=== PATIENT | male | born 1980 | race American Indian/Alaskan Native ===

== ENCOUNTER 2016-06-17 15:59 | Emergency (ER) | payer SELFPAY ==
[2016-06-17 18:25] VITALS: BP 136/84
--- NOTE | 2016-06-17 19:09 | Emergency Department Report ---
Chief Complaint: Chest Pain Stated Complaint: CHEST PAIN Time Seen by Provider: 06/17/16 19:09 - HPI History of Present Illness: This is a 36-year-old patient complaining the pain in middle chest since this afternoon. She said the pain is constant in its pressure in the mid chest area. He is complaining of sharp pain with deep breaths or bending over. Reports nausea and vomited once today. Complaining of feeling short of breath today. Denies any cough. Denies any fever or chills. Chest pain is 8 out of 10. Denies injury to chest. Denies any medical problem. - ROS Review of Systems: All systems are negative unless stated in HPI above - Exam Vital Signs: Vital Signs 06/17/16 18:20 Temperature 98.4 F Pulse Rate 71 Respiratory 16 Rate Blood Pressure 136/84 O2 Sat by Pulse 98 Oximetry Physical Exam: General: This is a 36-year-old male well-nourished well-developed in no acute distress. CV: S1, S2. Regular rate and rhythm. Positive chest wall tenderness. Lungs: Clear to auscultate bilaterally, no rhonchi wheezes or rales. MSE screening note: Focused history and physical exam performed. Due to findings the following was ordered: See MDM ED Medical Decision Making - Medical Decision Making Medical decision making: Patient seen by provider in triage area. Appropriate protocol activated and patient to main ED to be seen by physician. ED Disposition for MSE Condition: Stable
--- NOTE | 2016-06-18 19:15 | ED Elopement Review ---
ED Pt Elopement review - Call Back decision Pt Call Back Decision: No action required
== END 2016-06-17 22:00 | disposition left against medical advice (07) ==
LOC: ED 15:59
DX: R07.89 Other chest pain (principal); R11.2 Nausea with vomiting, unspecified; Z53.21 Procedure and treatment not carried out due to patient leaving prior to being seen by health care provider
CPT/HCPCS: 93005; 93010

== ENCOUNTER 2017-06-23 15:47 | Emergency (ER) | payer SELFPAY ==
[2017-06-23 17:13] VITALS: BP 128/74
[2017-06-23 18:45] LABS: Hematocrit 48.8 % (35.5-45.6); Hemoglobin 16.2 gm/dl (11.8-15.2); Mean Corpuscular HGB Conc 33 % (32-34); Mean Corpuscular Hemoglobin 32 pg (28-32); Mean Corpuscular Volume 97 fl (84-94); Platelet Count 181 K/mm3 (140-440); Red Blood Count 5.03 M/mm3 (3.65-5.03); Red Cell Distribution Width 13.7 % (13.2-15.2)
[2017-06-23 19:55] LABS: Blood Urea Nitrogen TNR mg/dL (9-20)
[2017-06-23 19:56] LABS: BUN/Creatinine Ratio TNR
[2017-06-23 19:57] LABS: Alanine Aminotransferase TNR units/L (7-56); Albumin TNR g/dL (3.9-5); Calcium TNR mg/dL (8.4-10.2)
[2017-06-23 19:58] LABS: Hemolysis Index TNR
[2017-06-23] MEDS ORDERED: DECADRON IV ONE (20:17)
[2017-06-23] MEDS ORDERED: TORADOL IM ONE (20:17)
--- NOTE | 2017-06-23 20:19 | Emergency Department Report ---
ED Back Pain/Injury HPI - General Chief Complaint: Back Pain/Injury Stated Complaint: BACK PAIN/VOMITING Source: patient Limitations: No Limitations - History of Present Illness Initial Comments: 37-year-old -Citizen Of [place] male comes in for complaint of back pain that started a week ago. Patient reports that at that time the pain was dull and intermittent today he reports that he went to pick remover a laundry basket and he felt something pop and after that he's been having trouble with pain traveling down his left lower back down his gluteal. Patient was lifting his left leg causes worse pain. He reports that he did take 2 tramadol with no help L was given to him by a friend. Patient reports that he has no known drug allergies currently takes no medication patient reports that the pain is excruciating. MD Complaint: back pain -: week(s) (1) Similar Symptoms Previously: Yes Place: home Radiation: left leg Severity: severe Severity scale (0 -10): 10 Quality: sharp, stabbing Consistency: constant Improves With: none Worsens With: walking, other (the left leg) Context: while lifting Treatments Prior to Arrival: other (tramadol) - Related Data Previous Rx's Medication Instructions Recorded Last Taken Type Baclofen [Lioresal] 10 mg PO TID #30 tab 06/23/17 Unknown Rx Naproxen [Naprosyn] 500 mg PO BID PRN 10 Days #20 06/23/17 Unknown Rx tablet Allergies Allergy/AdvReac Type Severity Reaction Status Date / Time No Known Allergies Allergy Verified 06/17/16 18:25 ED Review of Systems ROS: Stated complaint: BACK PAIN/VOMITING Other details as noted in HPI Constitutional: denies: chills, fever Eyes: denies: eye pain, eye discharge, vision change ENT: denies: ear pain, throat pain Respiratory: denies: cough, shortness of breath, wheezing Cardiovascular: denies: chest pain, palpitations Endocrine: no symptoms reported Gastrointestinal: denies: abdominal pain, nausea, diarrhea Genitourinary: denies: urgency, dysuria Musculoskeletal: back pain Neurological: denies: headache, weakness, paresthesias Psychiatric: denies: anxiety, depression Hematological/Lymphatic: denies: easy bleeding, easy bruising ED Past Medical Hx - Past Medical History Hx Seizures: Yes - Social History Smoking Status: Current Every Day Smoker Substance Use Type: Alcohol - Medications Home Medications: Home Medications Medication Instructions Recorded Confirmed Last Taken Type Baclofen [Lioresal] 10 mg PO TID #30 tab 06/23/17 Unknown Rx Naproxen [Naprosyn] 500 mg PO BID PRN 10 Days #20 06/23/17 Unknown Rx tablet ED Physical Exam - General Limitations: No Limitations General appearance: alert, in no apparent distress - Head Head exam: Present: atraumatic, normocephalic - Respiratory Respiratory exam: Present: normal lung sounds bilaterally. Absent: respiratory distress - Cardiovascular Cardiovascular Exam: Present: regular rate, normal rhythm. Absent: systolic murmur, diastolic murmur, rubs, gallop - Back Exam Back exam: Present: muscle spasm, paraspinal tenderness. Absent: CVA tenderness (L) - Neurological Exam Neurological exam: Present: alert, oriented X3 - Psychiatric Psychiatric exam: Present: normal affect, normal mood - Skin Skin exam: Present: warm, dry, intact, normal color. Absent: rash ED Course Vital Signs 06/23/17 06/23/17 17:10 21:35 Temperature 97.4 F L Pulse Rate 62 Respiratory 18 18 Rate Blood Pressure 128/74 O2 Sat by Pulse 100 Oximetry ED Medical Decision Making - Lab Data Result diagrams: 06/23/17 17:19 06/23/17 20:35 - Radiology Data Radiology results: report reviewed, image reviewed Impression acute osseous abnormalities. - Medical Decision Making Patient's been evaluated by this provider fast track. Discussed with patient that he most likely has sciatica. Discussed the patient we will do an x-ray of his lumbar sacral area which came back no acute osseous abnormalities. Also discussed the patient we'll give him a shot of Toradol 30 mg IM as well as dexa 8 mg IM. Discussed the patient I will discharge him on naproxen and baclofen for pain and muscle spasms. Patient verbalized understanding. Critical care attestation.: If time is entered above; I have spent that time in minutes in the direct care of this critically ill patient, excluding procedure time. ED Disposition Clinical Impression: Back pain with left-sided sciatica Disposition: TO HOME OR SELFCARE Is pt being admited?: No Does the pt Need Aspirin: No Condition: Stable Instructions: Sciatica (ED), Lumbar Radiculopathy (ED), Low Back Strain (ED) Additional Instructions: Please take medication as prescribed. Follow up with her primary care provider or orthopedics. Prescriptions: Baclofen [Lioresal] 10 mg PO TID #30 tab Naproxen [Naprosyn] 500 mg PO BID PRN 10 Days #20 tablet PRN Reason: Pain Referrals: MICHELLE CLARKE MD [Primary Care Provider] - 3-5 Days TRUDY CHRISTIAN MD [Staff Physician] - 3-5 Days
[2017-06-23 20:39] LABS: Bilirubin,Urine NEG (Negative); Blood,Urine NEG (Negative); Color,Urine Yellow (Yellow); Mucus,Urine 3+ /HPF; Nitrite,Urine NEG (Negative); RBC,Urine < 1.0 /HPF (0.0-6.0); Urobilinogen,Urine < 2.0 mg/dL (<2.0)
--- NOTE | 2017-06-23 21:11 | XRay Report ---
FINAL REPORT EXAM: XR SPINE LUMBOSACRAL 2-3V HISTORY: lower back pain, feeling a pop having more pain TECHNIQUE: AP and lateral views of lumbar spine. PRIORS: None. FINDINGS: No loss of height or gross malalignment of lumbar vertebral bodies. No obvious osseous destruction. Lumbar disc spaces maintained. Paraspinal soft tissues grossly unremarkable. IMPRESSION: 1. No acute osseous abnormality.
[2017-06-23 21:17] LABS: Alanine Aminotransferase 14 units/L (7-56); Albumin 4.7 g/dL (3.9-5); BUN/Creatinine Ratio 9; Blood Urea Nitrogen 8 mg/dL (9-20); Calcium 8.9 mg/dL (8.4-10.2); Hemolysis Index 17
[2017-06-23] MEDS ORDERED: TORADOL ONE (21:25)
== END 2017-06-23 22:20 | disposition home or self-care (01) ==
LOC: ED 15:47
DX: M54.42 Lumbago with sciatica, left side (principal); F17.200 Nicotine dependence, unspecified, uncomplicated
CPT/HCPCS: 36415; 72100; 80053; 81001; 85027; 96372; 96374; 99284; J1100; J1885

== ENCOUNTER 2017-07-21 10:02 | Emergency (ER) | payer OTHER ==
[2017-07-21 10:33] VITALS: BP 163/105
--- NOTE | 2017-07-21 12:44 | Emergency Department Report ---
HPI - General Chief Complaint: Medical Clearance Time Seen by Provider: 07/21/17 11:53 - HPI HPI: 37-year-old male presents to ED complaining of being exposed at work to Carbon monoxide. Patient's 0 7:30 AM today after his job at [employer] the after, monoxide leak he went and then after being there for about 45 minutes started feeling lightheaded, coughing, sweating and speeding up. Patient states earlier to going to work he was fine and had non of the symptoms. ED Past Medical Hx - Past Medical History Hx Seizures: Yes - Surgical History Past Surgical History?: No - Social History Smoking Status: Never Smoker - Medications Home Medications: Home Medications Medication Instructions Recorded Confirmed Last Taken Type Baclofen [Lioresal] 10 mg PO TID #30 tab 06/23/17 Unknown Rx Naproxen [Naprosyn] 500 mg PO BID PRN 10 Days #20 06/23/17 Unknown Rx tablet ED Review of Systems ROS: Stated complaint: CARBON MONOXIDE EXPOSURE Other details as noted in HPI Constitutional: denies: chills, fever Eyes: denies: eye pain, eye discharge, vision change ENT: denies: ear pain, throat pain Respiratory: denies: cough, shortness of breath, wheezing Cardiovascular: denies: chest pain, palpitations Endocrine: no symptoms reported Gastrointestinal: denies: abdominal pain, nausea, diarrhea Genitourinary: denies: urgency, dysuria Musculoskeletal: denies: back pain, joint swelling, arthralgia Skin: denies: rash, lesions Neurological: denies: headache, weakness, paresthesias Psychiatric: denies: anxiety, depression Hematological/Lymphatic: denies: easy bleeding, easy bruising Physical Exam - Physical Exam Vital Signs: Vital Signs 07/21/17 07/21/17 10:30 10:57 Temperature 98.2 F Pulse Rate 94 H 78 Respiratory 18 16 Rate Blood Pressure 163/105 O2 Sat by Pulse 98 100 Oximetry Physical Exam: GENERAL: Alert and oriented x3, no apparent distress, Normal Gait, atraumatic. HEAD: Head is normocephalic and a-traumatic. EYES: Extra ocular muscles are intact. Pupils are equal, round, and reactive to light and accommodation. MOUTH:Mouth is well hydrated and without lesions. Tonsils nonerythematous or swollen, Uvula midline, Tongue not elevated. Mucous membranes are moist. Posterior pharynx clear, no exudate or lesions. Patent airways. LUNGS: Symetrical with respiration, No wheezing, no rales or crackles, CTAB. HEART: S1, S2 present, regular rate and rhythm without murmur, no rubs, no gallops. Non tender to palpation NEUROLOGIC: The patient is cooperative with no focal neurologic deficits. Cranial nerves II through XII are grossly intact. Normal speech. Normal sensation in bilateral upper and lower extremities, No loss of sensation, . SKIN: Warm and dry, No lesions, No ulceration or induration present. ED Course Vital Signs 07/21/17 07/21/17 10:30 10:57 Temperature 98.2 F Pulse Rate 94 H 78 Respiratory 18 16 Rate Blood Pressure 163/105 O2 Sat by Pulse 98 100 Oximetry ED Medical Decision Making - Radiology Data 37-year-old male presents status post carbon monoxide exposure at work. ED course: Patient received only the oxygen while in ED. Carboxyhemoglobin was within normal limits I discussed the patient and although he was exposed to was no toxic level and splint. I discussed the patient to [facility] and is able to return to work on Monday. Vital signs are normal patient is in no acute or respiratory distress. Critical care attestation.: If time is entered above; I have spent that time in minutes in the direct care of this critically ill patient, excluding procedure time. ED Disposition Clinical Impression: Carbon monoxide exposure Disposition: - TO HOME OR SELFCARE Is pt being admited?: No Does the pt Need Aspirin: No Condition: Stable Instructions: Carbon Monoxide Exposure (ED) Additional Instructions: Make sure to follow up with the primary care physician as discussed. Take all your medications as you've been prescribed. If you have any worsening symptoms or develop new symptoms please return to ED immediately. Referrals: PRIMARY CARE, [Primary Care Provider] - 3-5 Days [facility] [Outside] - 3-5 Days [facility] [Outside] - 3-5 Days [facility] [Outside] - 3-5 Days Forms: Work/School Release Form(ED) Time of Disposition: 12:50
== END 2017-07-21 13:09 | disposition home or self-care (01) ==
LOC: ED 10:02
DX: T58.8X1A Toxic effect of carbon monoxide from other source, accidental (unintentional), initial encounter (principal); Y92.89 Other specified places as the place of occurrence of the external cause; R56.9 Unspecified convulsions
CPT/HCPCS: 82375; 99283

== ENCOUNTER 2018-03-15 09:27 | Emergency (ER) | payer SELFPAY ==
--- NOTE | 2018-03-15 10:27 | Emergency Department Report ---
ED Chest Pain HPI - General Chief Complaint: Arrhythmia/Palpitations Stated Complaint: BACK/CHEST PAIN Time Seen by Provider: 03/15/18 10:14 Source: patient Mode of arrival: Ambulatory Limitations: No Limitations - History of Present Illness Initial Comments: 38-year-old -[place] male presents to the emergency department, walking from home to be seen, with complaint of waking up this morning with some chest pain and back pain. Patient says that it is a stabbing intermittent midsternal chest pain. The back pain is low to middle back. The patient tried drinking some water as a treatment without much relief. He denies any problems with bowel or bladder, numbness or paresthesias or any neurological deficits. He has some intermittent shortness of breath. He denies any fever, nausea or vomiting. He has a past medical history of atrial fibrillation diagnosed in June 2017 at [place] emergency department. He says he was placed on anticoagulation at that time but he ran out of the medication some time in July or August. He denies any tobacco use. He will occasionally smoke marijuana but denies any other illicit drug use. He also has a past medical history of seizures. No recent travel or sick contacts at home. He does not follow with any primary care or cardiology physicians. - Related Data Home Medications Medication Instructions Recorded Confirmed Last Taken Aspirin [Aspirin BABY CHEW TAB] 81 mg PO QDAY 03/15/18 03/15/18 Unknown AtorvaSTATin [Lipitor] 40 mg PO QHS 03/15/18 03/15/18 Unknown Metoprolol Tartrate 25 mg PO DAILY 03/15/18 03/15/18 Unknown Rivaroxaban [Xarelto] 10 mg PO QDAY 03/15/18 03/15/18 Unknown Previous Rx's Medication Instructions Recorded Last Taken Type Aspirin [Aspirin BABY CHEW TAB] 81 mg PO QDAY #30 tab.chew 03/15/18 Unknown Rx AtorvaSTATin [Lipitor] 40 mg PO QHS #30 tab 03/15/18 Unknown Rx Metoprolol [Lopressor TAB] 25 mg PO DAILY #30 tablet 03/15/18 Unknown Rx Rivaroxaban [Xarelto] 10 mg PO QDAY #30 tab 03/15/18 Unknown Rx Allergies Allergy/AdvReac Type Severity Reaction Status Date / Time No Known Allergies Allergy Verified 07/21/17 10:29 Heart Score - HEART Score History: Slightly suspicious EKG: Non-specific Age: < 45 Risk factors: 1-2 risk factors Troponin: < normal limit HEART Score: 2 - Critical Actions Critical Actions: 0-3 pts:0.9-1.7%risk of adverse cardiac event.Candidate for discharge ED Review of Systems ROS: Stated complaint: BACK/CHEST PAIN Other details as noted in HPI Comment: All other systems reviewed and negative Constitutional: denies: chills, fever Eyes: denies: eye pain, eye discharge, vision change ENT: denies: ear pain, throat pain Respiratory: shortness of breath. denies: cough Cardiovascular: chest pain. denies: palpitations Gastrointestinal: denies: abdominal pain, nausea, diarrhea Genitourinary: denies: urgency, dysuria Musculoskeletal: back pain. denies: joint swelling Skin: denies: rash, lesions Neurological: denies: headache, weakness ED Past Medical Hx - Past Medical History Previous Medical History?: Yes Hx Seizures: Yes Additional medical history: A fib - Surgical History Past Surgical History?: No - Social History Smoking Status: Never Smoker Substance Use Type: None - Medications Home Medications: Home Medications Medication Instructions Recorded Confirmed Last Taken Type Aspirin [Aspirin BABY CHEW TAB] 81 mg PO QDAY 03/15/18 03/15/18 Unknown History Aspirin [Aspirin BABY CHEW TAB] 81 mg PO QDAY #30 tab.chew 03/15/18 Unknown Rx AtorvaSTATin [Lipitor] 40 mg PO QHS 03/15/18 03/15/18 Unknown History AtorvaSTATin [Lipitor] 40 mg PO QHS #30 tab 03/15/18 Unknown Rx Metoprolol Tartrate 25 mg PO DAILY 03/15/18 03/15/18 Unknown History Metoprolol [Lopressor TAB] 25 mg PO DAILY #30 tablet 03/15/18 Unknown Rx Rivaroxaban [Xarelto] 10 mg PO QDAY 03/15/18 03/15/18 Unknown History Rivaroxaban [Xarelto] 10 mg PO QDAY #30 tab 03/15/18 Unknown Rx ED Physical Exam - General Limitations: No Limitations - Other Other exam information: GENERAL: The patient is well-developed well-nourished. HEENT: Normocephalic. Atraumatic. Patient has moist mucous membranes. EYES: Extraocular motions are intact. Pupils are equal and reactive to light bilaterally. NECK: Supple. Trachea is midline. CHEST/LUNGS: Clear to auscultation. There is no respiratory distress noted. HEART/CARDIOVASCULAR: Regular. There is mild tachycardia. There is no gallop rub or murmur. ABDOMEN: Abdomen is soft, nontender. Patient has normal bowel sounds. There is no abdominal distention. SKIN: Skin is warm and dry. NEURO: The patient is awake, alert, and oriented. The patient is cooperative. The patient has no focal neurologic deficits. The patient has normal speech and gait. MUSCULOSKELETAL: There is no tenderness or deformity. There is no limitation range of motion. There is no evidence of acute injury. Muscle strength 5 out of 5 for upper and lower extremities bilaterally. BACK: There is no reproducible back pain to palpation. No midline lumbar or thoracic step-off or deformity. ED Course Vital Signs 03/15/18 03/15/18 03/15/18 09:41 10:17 10:31 Temperature 97.7 F Pulse Rate 94 H 73 70 Respiratory 18 16 12 Rate Blood Pressure 139/91 136/88 Blood Pressure [Right] O2 Sat by Pulse 98 100 Oximetry 03/15/18 03/15/18 03/15/18 10:33 10:45 11:01 Temperature 98.7 F Pulse Rate 70 67 65 Respiratory 17 19 14 Rate Blood Pressure 133/87 142/82 Blood Pressure 133/87 [Right] O2 Sat by Pulse 99 99 100 Oximetry 03/15/18 03/15/18 03/15/18 11:15 11:31 11:45 Temperature Pulse Rate 69 68 68 Respiratory 14 17 18 Rate Blood Pressure 141/74 131/83 141/74 Blood Pressure [Right] O2 Sat by Pulse 99 98 99 Oximetry 03/15/18 03/15/18 03/15/18 12:01 12:16 12:31 Temperature Pulse Rate 75 65 63 Respiratory 18 15 17 Rate Blood Pressure 142/81 143/91 129/81 Blood Pressure [Right] O2 Sat by Pulse 97 100 98 Oximetry 03/15/18 03/15/18 03/15/18 12:34 12:45 13:01 Temperature Pulse Rate 64 72 Respiratory 14 10 L 22 Rate Blood Pressure 131/89 143/95 Blood Pressure [Right] O2 Sat by Pulse 99 98 Oximetry 03/15/18 03/15/18 03/15/18 13:04 13:15 13:31 Temperature Pulse Rate 70 67 Respiratory 15 19 10 L Rate Blood Pressure 143/95 128/91 Blood Pressure [Right] O2 Sat by Pulse 98 99 Oximetry 03/15/18 03/15/18 03/15/18 13:45 14:01 14:15 Temperature Pulse Rate 74 65 74 Respiratory 20 22 10 L Rate Blood Pressure 123/81 132/91 123/81 Blood Pressure [Right] O2 Sat by Pulse 100 99 99 Oximetry 03/15/18 03/15/18 03/15/18 14:31 14:45 15:01 Temperature Pulse Rate 69 73 70 Respiratory 22 20 18 Rate Blood Pressure 137/83 148/82 136/92 Blood Pressure [Right] O2 Sat by Pulse 99 98 97 Oximetry 03/15/18 03/15/18 03/15/18 15:15 15:31 15:45 Temperature Pulse Rate 75 77 62 Respiratory 17 18 13 Rate Blood Pressure 135/90 135/90 133/84 Blood Pressure [Right] O2 Sat by Pulse 99 100 100 Oximetry DOMINICK score - Dominick Score Age > 65: (0) No Aspirin use within the Past 7 Days: (1) Yes 3 or more CAD Risk Factors: (0) No 2 or more Angina events in past 24 hrs: (1) Yes Known CAD with more than 50% Stenosis: (0) No Elevated Cardiac Markers: (0) No ST Deviation Greater than 0.5mm: (0) No DOMINICK Score: 2 ED Medical Decision Making - Lab Data Result diagrams: 03/15/18 11:25 03/15/18 11:25 - EKG Data -: EKG Interpreted by Me EKG shows normal: sinus rhythm, axis (left axis deviation), intervals, QRS complexes (LVH), ST-T waves (there is some early repolarization to the anterior leads, no ST depression) Rate: normal - EKG Data When compared to previous EKG there are: no significant change Interpretation: unchanged when compared t (06/17/16) 03/15/18 15:54 Repeat EKG shows a sinus rhythm at 65 bpm. Left axis deviation, LVH, there are now some flipped T waves to V5 and V6. - Radiology Data Radiology results: image reviewed interpreted by me: Chest x-ray did not show any pleural effusion, focal consolidation, pneumothorax or obvious pneumonia. - Medical Decision Making Patient presents with complaint of some stabbing intermittent midsternal chest pain. Patient's labs have been unremarkable thus far including negative troponins 2 and a negative d-dimer. However the patient had a change in his EKG between the first and second EKGs that were done today including some new T- wave inversions and development of a questionable left bundle branch block. For this reason I plan to admit the patient to the hospital for further evaluation and the case has been presented to the admitting hospitalist, Dr. Castillo. - Differential Diagnosis LA, PE, gastritis, GERD, pneumonia Critical Care Time: No Critical care attestation.: If time is entered above; I have spent that time in minutes in the direct care of this critically ill patient, excluding procedure time. ED Disposition Clinical Impression: Acute chest pain, History of atrial fibrillation Chest pain Qualifiers: Chest pain type: unspecified Qualified Code(s): R07.9 - Chest pain, unspecified Disposition: OP ADMIT IP TO THIS HOSP Is pt being admited?: No Condition: Stable Instructions: Chest Pain (ED) Additional Instructions: Please follow up with a primary care physician in the next few days and I will give you some referrals for local primary care physicians. I have also given you a referral for a local supervisor [employer], Dr. Flores, to follow up regarding your chest pain and your history of atrial fibrillation. Return to the emergency department with any return of your chest pain, palpitations, shortness of breath , or with any acute distress. Prescriptions: AtorvaSTATin [Lipitor] 40 mg PO QHS #30 tab Aspirin [Aspirin BABY CHEW TAB] 81 mg PO QDAY #30 tab.chew Metoprolol [Lopressor TAB] 25 mg PO DAILY #30 tablet Rivaroxaban [Xarelto] 10 mg PO QDAY #30 tab Referrals: KELLY IBANEZ MD [Primary Care Provider] - 2-3 Days GUERRERO FLORES MD [Staff Physician] - 2-3 Days BERTO RUIZ MD [Staff Physician] - 2-3 Days [facility] [Outside] - 2-3 Days Time of Disposition: 15:01
--- NOTE | 2018-03-15 11:31 | XRay Report ---
ROUTINE CHEST, TWO VIEWS: HISTORY: chest pain. The trachea, heart, mediastinal contour, lung petersen and bony thorax are unremarkable. IMPRESSION: Unremarkable chest x-ray.
[2018-03-15 11:43] LABS: Basophils % (Auto) 0.4 % (0.0-1.8); Eosinophils # (Auto) 0.1 K/mm3 (0.0-0.4); Eosinophils % (Auto) 1.4 % (0.0-4.3); Hematocrit 48.1 % (35.5-45.6); Hemoglobin 16.2 gm/dl (11.8-15.2); Lymphocytes # (Auto) 2.2 K/mm3 (1.2-5.4); Lymphocytes % (Auto) 26.1 % (13.4-35.0); Mean Corpuscular HGB Conc 34 % (32-34); Mean Corpuscular Hemoglobin 32 pg (28-32); Mean Corpuscular Volume 96 fl (84-94); Monocytes # (Auto) 0.8 K/mm3 (0.0-0.8); Monocytes % (Auto) 9.7 % (0.0-7.3); Platelet Count 174 K/mm3 (140-440); Red Cell Distribution Width 14.1 % (13.2-15.2)
[2018-03-15 12:03] LABS: Alanine Aminotransferase 14 units/L (7-56); Albumin 4.4 g/dL (3.9-5); BUN/Creatinine Ratio 10; Blood Urea Nitrogen 10 mg/dL (9-20); Calcium 8.9 mg/dL (8.4-10.2); Hemolysis Index 10
[2018-03-15] MEDS ORDERED: TORADOL IM ONE (12:07)
[2018-03-15] MEDS ORDERED: CARAFATE PO ONE (15:58)
--- NOTE | 2018-03-15 16:58 | Consultation ---
Medications and Allergies Allergies Allergy/AdvReac Type Severity Reaction Status Date / Time No Known Allergies Allergy Verified 07/21/17 10:29 Home Medications Medication Instructions Recorded Confirmed Last Taken Type Aspirin [Aspirin BABY CHEW TAB] 81 mg PO QDAY 03/15/18 03/15/18 Unknown History AtorvaSTATin [Lipitor] 40 mg PO QHS 03/15/18 03/15/18 Unknown History Metoprolol Tartrate 25 mg PO DAILY 03/15/18 03/15/18 Unknown History Rivaroxaban [Xarelto] 10 mg PO QDAY 03/15/18 03/15/18 Unknown History Active Meds: Active Medications Rivaroxaban (Xarelto) 15 mg PO ONCE ONE; Protocol Stop: 03/15/18 16:59 Exam - Constitutional Vitals: Temp Pulse Resp BP Pulse Ox 98.7 F 62 13 133/84 100 03/15/18 10:33 03/15/18 15:45 03/15/18 15:45 03/15/18 15:45 03/15/18 15:45 Results - Labs CBC & Chem 7: 03/15/18 11:25 03/15/18 11:25 Labs: Abnormal lab results 03/15/18 Range/Units 11:25 Hgb 16.2 H (11.8-15.2) gm/dl Hct 48.1 H (35.5-45.6) % MCV 96 H (84-94) fl [place] % (Auto) 9.7 H (0.0-7.3) %
[2018-03-15] MEDS ORDERED: XARELTO PO ONE (17:30)
[2018-03-15 19:37] VITALS: BP 112/72
== END 2018-03-15 19:35 | disposition admitted as inpatient to this hospital (09) ==
LOC: ED 09:27
DX: R07.89 Other chest pain (principal); Z86.79 Personal history of other diseases of the circulatory system
CPT/HCPCS: 36415; 71046; 80053; 84484; 85025; 85379; 93005; 93010; 96372; 99284; J1885